=== PATIENT | male | born 1990 | race Two or more races ===

== ENCOUNTER 2018-02-14 15:41 | Emergency (ER) | payer SELFPAY ==
[2018-02-14 15:57] VITALS: BP 129/74; BMI 26.9
[2018-02-14] MEDS ORDERED: TORADOL 60 MG VIAL IM ONE (16:21)
--- NOTE | 2018-02-14 16:22 | DR.GENAD ---
HPI - PCP Primary Care Physician: NONE - Complaint/Symptoms Chief Complaint:: PT SAW A YELLOW COLORED SPIDER BITE HIM AT LUNCH TIME TO LEFT UPPER AXILIA AREA. NOTED RED AREA WITH RAIDED CENTER. 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).) - Mode of Arrival Mode of Arrival: Ambulatory - Timing Onset of Chief Complaint: 02/14/18 PMH - PMH Past Medical History: No Past Surgical History: Yes Surgical History: Appendectomy - Family History History of Family Medical Conditions: No - Social History Type of Tobacco Use: Cigarettes Alcohol Use: Rarely, Occasionally Do you use any recreational Drugs:: No Lives With: Family Lives Where: Home - infectious screening In the last 2 months have you had wt loss of >10#?: NO Have you had fever, night sweats or hemotysis?: No Have you traveled outside the country in the last 6 months?: No Isolation: Standard ROS - Review of Systems Constitutional: No Symptoms Reported Eyes: No Symptoms Reported ENTM: No Symptoms Reported Respiratoy: No Symptoms Reported Cardiovascular: No Symptoms Reported Gastrointestinal/Abdominal: No Symptoms Reported Genitourinary: No Symptoms Reported Neurological: No Symptoms Reported Musculoskeletal: No Symptoms Reported Integumentary: Other (spider bite to left upper chest) Hematologic/Lymphatic: No Symptoms Reported Endocrine: No Symptoms Reported Psychiatric: No Symptoms Reported All Other Systems: Reviewed and Negative PE - Vital Signs Vitals: Temperature 99.2 F Pulse Rate 77 Respiratory Rate 16 Blood Pressure 129/74 O2 Sat by Pulse Oximetry 98 - General Limitations: No Limitations General Appearance: Alert, In No Apparent Distress - Head Head Exam: Normal Inspection - Eyes Eye exam: Normal Appearance - ENT ENT Exam: Normal Exam - Neck Neck Exam: Normal Inspection - Chest Chest Inspection: Normal Inspection - Respiratory Respiratory Exam: Normal Lung Sounds Bilat - Cardiovascular Cardiovascular Exam: Regular Rate, Normal Rhythm - Abdominal Exam Abdominal Exam: Normal Inspection, Normal Bowel Sounds, Soft - Extremities Extremities Exam: Normal Inspection - Back Back Exam: Normal Inspection - Neurologic Neurological Exam: Alert, Oriented X3 - Psychiatric Psychiatric Exam: Normal Affect, Normal Mood - Skin Skin Exam: Warm, Dry, Other (An lightly erythematous lesion medial to the left axilla. Size is less than a nockle in circumference. It is slightly raised, non- crusted and not draining.) - Diagnosis Discharge Problem: Spider bite - Discharge Plan Disposition: 01 HOME, SELF-CARE Condition: Stable - Follow ups/Referrals Follow ups/Referrals: NFD,None [Primary Care Provider] - 3 days - Instructions Instructions: Spider Bite, [id number]
[2018-02-14] MEDS ORDERED: TORADOL 60 MG VIAL ONE (16:24)
[2018-02-14] MEDS ORDERED: ALLEGRA ONE (16:28)
[2018-02-15] MEDS ORDERED: ALLEGRA PO ONE (16:22)
== END 2018-02-14 16:53 | disposition home or self-care (01) ==
LOC: ER 16:01
DX: S40.862A Insect bite (nonvenomous) of left upper arm, initial encounter (principal); W57.XXXA Bitten or stung by nonvenomous insect and other nonvenomous arthropods, initial encounter
CPT/HCPCS: 96372; 99282; J1885